=== PATIENT | female | born 1960 | race Caucasian/White ===

== ENCOUNTER 2017-04-04 22:36 | Emergency (ER) | payer OTHER, MEDICARE ==
[2017-04-04 23:08] VITALS: RESP 18
[2017-04-04 23:48] LABS: Appearance,Urine Clear (Clear); Bilirubin,Urine Negative (Negative); Glucose,Urine (UA) Negative (Negative); Ketones,Urine Negative (Negative); Leukocyte Esterase,Urine Negative (Negative); Nitrite,Urine Negative (Negative); PH, Urine 5.5 (5.0-8.0); Protein,Urine Negative (Negative); Specific Gravity,Urine 1.017 (1.001-1.035); UA Billing (MACRO vs. MICRO) CHEM; Urobilinogen,Urine <2.0 mg/dL (<2.0)
--- NOTE | 2017-04-04 23:50 | ED ---
General Adult HPI - General Chief complaint: Abdominal Pain Stated complaint: left kidney pain Time Seen by Provider: 04/04/17 23:14 Source: patient, family, RN notes reviewed, old records reviewed Mode of arrival: ambulatory Limitations: no limitations - History of Present Illness Initial comments: Chief complaint history of present illness a 56-year-old female with complaint of acute onset of pain started in the left lower lumbar area radiating around toward the right groin area. Patient has had history of lumbar disc degenerative changes. But shows become slightly sweaty and nauseated this time. She's never had a kidney stone in the past. - Related Data Home Medications Medication Instructions Recorded Confirmed Cholecalciferol [Vitamin D3] 2,000 unit PO DAILY 09/08/15 04/04/17 Diltiazem HCl [Diltiazem ER] 120 mg PO HS 09/08/15 04/04/17 Etodolac [Lodine] 400 mg PO BID 09/08/15 04/04/17 Levothyroxine Sodium [Synthroid] 100 mcg PO DAILY 09/08/15 04/04/17 Loratadine [Claritin] 10 mg PO DAILY 09/08/15 04/04/17 Losartan [Cozaar] 50 mg PO DAILY 09/08/15 04/04/17 Simvastatin [Zocor] 20 mg PO HS 09/08/15 04/04/17 traMADol HCl [Ultram] 50 mg PO HS 09/08/15 04/04/17 Amoxicillin 500 mg PO TID 04/04/17 04/04/17 DULoxetine HCL [Cymbalta] 30 mg PO DAILY 04/04/17 04/04/17 Fluticasone Nasal [place] [Flonase 1 spray EA NOSTRIL BID PRN 04/04/17 04/04/17 Nasal [place]] Previous Rx's Medication Instructions Recorded Ibuprofen [Motrin] 600 mg PO Q6HR PRN #20 tab 04/05/17 Orphenadrine [Norflex] 100 mg PO Q12H #10 tablet.er 04/05/17 Allergies Allergy/AdvReac Type Severity Reaction Status Date / Time No Known Allergies Allergy Verified 04/04/17 23:24 Review of Systems ROS Statement: Those systems with pertinent positive or pertinent negative responses have been documented in the HPI. review of systems. No visual acuity changes no headache no stiff neck no chest pain or shortness of breath. The discomfort is left lumbar area raise around toward the left groin area. No neuro deficits. All systems were within normal limits. 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 Hyperlipidemia, hypertension, hypothyroidism. The patient 's surgeries include appendectomy tubal ligation and ovarian cyst. Family history significant for basal cell carcinomas and diabetes. Patient denies any ALLERGIES he quit smoking 29 years ago denies alcohol use. ROS Other: All systems not noted in ROS Statement are negative. Past Medical History Past Medical History: Diabetes Mellitus, GERD/Reflux, Hyperlipidemia, Hypertension, Thyroid Disorder Additional Past Medical History / Comment(s): arthritis, anemia, TMJ, Raynauds History of Any Multi-Drug Resistant Organisms: None Reported Past Surgical History: Appendectomy, Tubal Ligation Additional Past Surgical History / Comment(s): ovarian cyst Past Psychological History: Depression Smoking Status: Former smoker Past Alcohol Use History: None Reported Past Drug Use History: None Reported General Exam - General Exam Comments Initial Comments: General: The patient is awake and alert,pain to the left paralumbar region and upper left buttock area. The radiates around toward the front more toward the groin area. Eye: Pupils are equal, extra-ocular movements are intact; there is normal conjunctiva bilaterally. No signs of icterus. Neck: The neck is supple, there is no tenderness Cardiovascular: There is a regular rate and rhythm. No murmur, rub or gallop is appreciated. Respiratory: Lungs are clear to auscultation, respirations are non-labored, breath sounds are equal. No wheezes, stridor, rales, or rhonchi. Gastrointestinal: Soft, non-distended, non-tender abdomen without masses or organomegaly noted. There is no rebound or guarding present. No CVA tenderness. Bowel sounds are unremarkable. Back: mild tenderness with palpation of the left paralumbar region above the left buttock area. She reports the discomfort radiates around toward the front more toward the groin area. She is able to do leg lifts with mild discomfort with lifting the left leg. Musculoskeletal: Normal ROM, no tenderness, There is no pedal edema. There is no calf tenderness or swelling. Sensation intact. Neurological: CN II-XII intact, There are no obvious motor or sensory deficits. Coordination appears grossly intact. Speech is normal.no neuro deficits Skin: Skin is warm and dry and no rashes or lesions are noted. no rashes noted Limitations: no limitations Course Vital Signs 04/04/17 23:06 Temperature 97.9 F Pulse Rate 68 Respiratory 18 Rate Blood Pressure 181/84 O2 Sat by Pulse 98 Oximetry Medical Decision Making - Medical Decision Making Medical decision making patient's white count 7 hemoglobin 11.9 h hematocrit 35.8 amylase lipase normal limits. Potassium is 4.1 with BUN of 18 creatinine 0.7 with a GFR greater than 60. Glucose 94. A clean no signs of infection or blood.X-ray of the lumbosacral spine was done and reviewed it. Awaiting radiologist's final impression at this time no evidence of any acute bony irregularity. Disc spaces appear well maintained. Awaiting radiologist's final impression. X-ray of the abdomen was done and no evidence of any acute intestinal obstruction, no free air. No stones noted over the kidney silhouettes. Awaiting radiologist's final impression. The patient will be placed on ibuprofen 600 mg every 6 hours. And Norflex for muscle relaxation. Ice alternating with heat and follow-up with family physician. - Lab Data Result diagrams: 04/05/17 00:15 04/05/17 00:15 Lab Results 04/04/17 04/05/17 04/05/17 Range/Units 23:40 00:15 00:15 WBC 7.0 (3.8-10.6) k/uL RBC 3.74 L (3.80-5.40) m/uL Hgb 11.9 (11.4-16.0) gm/dL Hct 35.8 (34.0-46.0) % MCV 95.7 (80.0-100.0) fL MCH 31.9 (25.0-35.0) pg MCHC 33.3 (31.0-37.0) g/dL RDW 13.4 (11.5-15.5) % Plt Count 351 (150-450) k/uL Neutrophils % 56 % Lymphocytes % 30 % Monocytes % 7 % Eosinophils % 3 % Basophils % 1 % Neutrophils # 3.9 (1.3-7.7) k/uL Lymphocytes # 2.1 (1.0-4.8) k/uL Monocytes # 0.5 (0-1.0) k/uL Eosinophils # 0.2 (0-0.7) k/uL Basophils # 0.1 (0-0.2) k/uL Sodium 142 (137-145) mmol/L Potassium 4.1 (3.5-5.1) mmol/L Chloride 107 (98-107) mmol/L Carbon Dioxide 23 (22-30) mmol/L Anion Gap 12 mmol/L BUN 18 H (7-17) mg/dL Creatinine 0.70 (0.52-1.04) mg/dL Est GFR (MDRD) Af Amer >60 (>60 ml/min/1.73 sqM) Est GFR (MDRD) Non-Af >60 (>60 ml/min/1.73 sqM) Glucose 94 (74-99) mg/dL Calcium 9.6 (8.4-10.2) mg/dL Total Bilirubin 0.3 (0.2-1.3) mg/dL AST 23 (14-36) U/L ALT 35 (9-52) U/L Alkaline Phosphatase 66 (38-126) U/L Total Protein 6.5 (6.3-8.2) g/dL Albumin 3.9 (3.5-5.0) g/dL Amylase 80 (30-110) U/L Lipase 231 (23-300) U/L Urine Color Yellow Urine Appearance Clear (Clear) Urine pH 5.5 (5.0-8.0) Ur Specific [place] 1.017 (1.001-1.035) Urine Protein Negative (Negative) Urine Glucose (UA) Negative (Negative) Urine Ketones Negative (Negative) Urine Blood Negative (Negative) Urine Nitrite Negative (Negative) Urine Bilirubin Negative (Negative) Urine Urobilinogen <2.0 (<2.0) mg/dL Ur Leukocyte Esterase Negative (Negative) Disposition Clinical Impression: Lumbar spine strain Disposition: HOME SELF-CARE Condition: Fair Instructions: Acute Low Back Pain (ED) Additional Instructions: Do gentle stretching. Alternate ice and heat. Take medications as directed. Prescriptions: Ibuprofen [Motrin] 600 mg PO Q6HR PRN #20 tab PRN Reason: Pain Orphenadrine [Norflex] 100 mg PO Q12H #10 tablet.er Referrals: Lb Joya MD [Primary Care Provider] - 1-2 days Time of Disposition: 00:50
[2017-04-05 00:20] LABS: Basophils # (A) 0.1 k/uL (0-0.2); Basophils % (A) 1 %; CH 32.1; CHCM 33.7; Eosinophils # (A) 0.2 k/uL (0-0.7); Eosinophils % (A) 3 %; HCT 35.8 % (34.0-46.0); HGB 11.9 gm/dL (11.4-16.0); Luc # (Auto) 0.24; Luc % (Auto) 4; Lymphocytes # (A) 2.1 k/uL (1.0-4.8); Lymphocytes % (A) 30 %; MCH 31.9 pg (25.0-35.0); MCHC 33.3 g/dL (31.0-37.0); MCV 95.7 fL (80.0-100.0); Monocytes # (A) 0.5 k/uL (0-1.0); Monocytes % (A) 7 %; Neutrophils # (A) 3.9 k/uL (1.3-7.7); Neutrophils % (A) 56 %; RBC 3.74 m/uL (3.80-5.40); RDW 13.4 % (11.5-15.5); WBC (Perox) 7.13
[2017-04-05 00:29] LABS: ALT 35 U/L (9-52); AST 23 U/L (14-36); Alkaline Phosphatase 66 U/L (38-126); Amylase 80 U/L (30-110); Anion Gap 12 mmol/L; Blood Urea Nitrogen 18 mg/dL (7-17); Calcium 9.6 mg/dL (8.4-10.2); Carbon Dioxide 23 mmol/L (22-30); Chloride 107 mmol/L (98-107); Glucose 94 mg/dL (74-99); Non-African American GFR(MDRD) >60 (>60 ml/min/1.73 sqM); Potassium 4.1 mmol/L (3.5-5.1); Sodium 142 mmol/L (137-145); Total Bilirubin 0.3 mg/dL (0.2-1.3); Total Protein 6.5 g/dL (6.3-8.2)
[2017-04-05] MEDS ORDERED: CYCLOBENZAPRINE 10 MG TAB PO STA (00:49)
[2017-04-05] MEDS ORDERED: IBUPROFEN 600 MG STARTER PACK 4 TAB BTL PO STA (00:49)
[2017-04-05 01:09] VITALS: BP 164/91; PULSE 74; TEMP 97.8
--- NOTE | 2017-04-05 01:10 | XR ---
ADDENDUM - Added by Reji Rivera M.D. on 04/05/2017 1:24 AM (-07:00) A prior lumbar spine study from 03/06/15 was made available for review; this showed that the grade 1 degenerative anterolisthesis of L4 on L5 along with lower lumbar spine mild to moderate facet arthropathy are unchanged. ADDENDUM - Added by Reji Rivera M.D. on 04/05/2017 1:21 AM (-07:00) Further review shows grade 1 degenerative anterolisthesis of L4-L5 on the spot L5-S1 view. Could further evaluate with flexion and extension views to evaluate for any mechanical instability. EXAM: XR Lumbar Spine, 2 or 3 Views CLINICAL HISTORY: Reason: Pain TECHNIQUE: Frontal and lateral views of the lumbar spine. COMPARISON: No relevant prior studies available. FINDINGS: Vertebrae: Unremarkable. No acute fracture. Normal alignment. Disc spaces: No acute findings. No significant narrowing. Soft tissues: Unremarkable. IMPRESSION: Normal lumbar spine x-rays.
--- NOTE | 2017-04-05 01:19 | XR ---
EXAM: XR Abdomen Complete, 2 or More Views CLINICAL HISTORY: Reason: abdominal pain TECHNIQUE: Frontal supine and upright views of the abdomen/pelvis. COMPARISON: No relevant prior studies available. FINDINGS: Intraperitoneal space: No free air. Gastrointestinal tract: Unremarkable. No dilation. Bones/joints: Unremarkable. IMPRESSION: Normal abdominal x-rays.
== END 2017-04-05 01:09 | disposition home or self-care (01) ==
LOC: EC 22:36
DX: S39.012A Strain of muscle, fascia and tendon of lower back, initial encounter (principal); I10 Essential (primary) hypertension; E78.5 Hyperlipidemia, unspecified; E07.9 Disorder of thyroid, unspecified; F32.9 Major depressive disorder, single episode, unspecified; R11.0 Nausea; M19.90 Unspecified osteoarthritis, unspecified site; Z87.891 Personal history of nicotine dependence; Z79.899 Other long term (current) drug therapy
CPT/HCPCS: 36415; 72110; 74020; 80053; 81003; 82150; 83690; 85025; 87077; 87086; 87186; 99284

== ENCOUNTER 2018-09-04 20:26 | Emergency (ER) | payer MEDICARE, OTHER ==
[2018-09-04 20:43] VITALS: RESP 18
--- NOTE | 2018-09-04 21:42 | ED ---
Fall HPI - General Source: patient, RN notes reviewed Mode of arrival: wheelchair Limitations: no limitations <Cecy North - Last Filed: 09/04/18 22:11> <Caro Baer - Last Filed: 09/05/18 03:53> - General Chief Complaint: Fall Stated Complaint: fall Time Seen by Provider: 09/04/18 20:57 - History of Present Illness Initial Comments: This is a 58-year-old female who presents to the emergency department with chief complaint of right jolley injury. Patient states that approximately 30 minutes prior to arrival she was carrying a box of books. She states that she entered her garage and did not see a pallet lying on the ground. She tripped over it and fell forward landing on the box of books. She states that her right jolley scraped against the wood pallet. She is bearing weight and ambulating but complains of pain to the jolley. Denies any other injuries or trauma. Denies head, neck or back pain. She denies loss of consciousness, nausea or vomiting, dizziness or headache. (Cecy North) - Related Data Home Medications Medication Instructions Recorded Confirmed Cholecalciferol [Vitamin D3] 2,000 unit PO DAILY 09/08/15 04/04/17 Diltiazem HCl [Diltiazem ER] 120 mg PO HS 09/08/15 04/04/17 Etodolac [Lodine] 400 mg PO BID 09/08/15 04/04/17 Levothyroxine Sodium [Synthroid] 100 mcg PO DAILY 09/08/15 04/04/17 Loratadine [Claritin] 10 mg PO DAILY 09/08/15 04/04/17 Losartan [Cozaar] 50 mg PO DAILY 09/08/15 04/04/17 Simvastatin [Zocor] 20 mg PO HS 09/08/15 04/04/17 traMADol HCl [Ultram] 50 mg PO HS 09/08/15 04/04/17 Amoxicillin 500 mg PO TID 04/04/17 04/04/17 DULoxetine HCL [Cymbalta] 30 mg PO DAILY 04/04/17 04/04/17 Fluticasone Nasal [place] [Flonase 1 spray EA NOSTRIL BID PRN 04/04/17 04/04/17 Nasal [place]] Previous Rx's Medication Instructions Recorded Ibuprofen [Motrin] 600 mg PO Q6HR PRN #20 tab 04/05/17 Orphenadrine [Norflex] 100 mg PO Q12H #10 tablet.er 04/05/17 Allergies Allergy/AdvReac Type Severity Reaction Status Date / Time No Known Allergies Allergy Verified 09/04/18 20:40 Review of Systems ROS Other: All systems not noted in ROS Statement are negative. <Cecy North - Last Filed: 09/04/18 22:11> ROS Other: All systems not noted in ROS Statement are negative. <Caro Baer - Last Filed: 09/05/18 03:53> ROS Statement: Those systems with pertinent positive or pertinent negative responses have been documented in the HPI. Past Medical History Past Medical History: Diabetes Mellitus, GERD/Reflux, Hyperlipidemia, Hypertension, Thyroid Disorder Additional Past Medical History / Comment(s): arthritis, anemia, TMJ, Raynauds, deaf in right ear, has "balance issues". History of Any Multi-Drug Resistant Organisms: None Reported Past Surgical History: Appendectomy, Tubal Ligation Additional Past Surgical History / Comment(s): ovarian cyst Past Psychological History: Depression Smoking Status: Former smoker Past Alcohol Use History: None Reported Past Drug Use History: None Reported <Cecy North - Last Filed: 09/04/18 22:11> General Exam Limitations: no limitations <Cecy North - Last Filed: 09/04/18 22:11> <Caro Baer P - Last Filed: 09/05/18 03:53> - General Exam Comments Initial Comments: General: Awake and alert, well-developed; in no apparent distress. Sitting comfortably on ED stretcher. HEENT: Head atraumatic, normocephalic. Pupils are equal, round and reactive to light. Extraocular movements intact. Oropharynx moist without erythema or exudate. Neck: Supple. Normal ROM. Cardiovascular: Regular rate and rhythm. No murmurs, rubs or gallops. Chest symmetrical. Respiratory: Lungs clear to auscultation bilaterally. No wheezes, rales or rhonchi. Normal respiratory effort with no use of accessory muscles. Musculoskeletal: Normal range of motion of bilateral upper and lower extremities. There is an approximately 3 cm x 4 cm superficial skin abrasion and ecchymosis distal to the right knee. Sensation is intact. Pedal pulses are 2+ equal and palpable bilaterally. Skin: [place], warm and dry without rashes. Neurological: Alert and oriented x3. CN II-XII grossly intact. Speech is fluent and answers are appropriate. No focal neuro deficits. Psychiatric: Normal mood and affect. No overt signs of depression or anxiety noted. (Cecy North) Vital Signs 09/04/18 09/04/18 20:40 22:11 Temperature 98.1 F 97.8 F Pulse Rate 78 80 Respiratory 18 18 Rate Blood Pressure 136/90 151/89 O2 Sat by Pulse 98 96 Oximetry Medical Decision Making - Radiology Data Radiology results: report reviewed <Cecy North - Last Filed: 09/04/18 22:11> <Caro Baer - Last Filed: 09/05/18 03:53> - Medical Decision Making This is a 58-year-old female who presents to the emergency department with chief complaint of right jolley injury. Patient reports tripping over a pallet and scraping her right jolley on it. Patient is bearing weight and ambulating but does complain of pain. There is a superficial skin abrasion and contusion distal to the right knee. No gross deformities. No bleeding. Patient is neurovascularly intact. X-ray of the right tibia and fibula was obtained which revealed no acute abnormalities. She is in no acute distress and will be discharged home at this time. Instructed patient to rest, ice and take Tylenol or Motrin as needed for pain. She is in agreement with plan and voices understanding. All questions are answered. (Cecy North) I was available for consultation in the emergency department. The history and physical exam were done by the Midlevel Provider. Medical decision making was done by the Midlevel Provider. The Midlevel Provider did not contact me for this patient's care. I was not directly involved in this patient's care. (Caro Baer) - Radiology Data X-ray right tibia and fibula impression: No acute process. (Cecy North) Disposition Is patient prescribed a controlled substance at d/c from ED?: No Time of Disposition: 21:45 <Cecy North - Last Filed: 09/04/18 22:11> <Caro Baer - Last Filed: 09/05/18 03:53> Clinical Impression: Contusion of leg, Abrasion Disposition: HOME SELF-CARE Condition: Good Instructions: Contusion in Adults (ED), Abrasion (ED) Additional Instructions: Please follow up with primary care provider within 1-2 days. Return to emergency department if symptoms should worsen or any concerns arise. Referrals: Lb Joya MD [Primary Care Provider] - 1-2 days
--- NOTE | 2018-09-04 21:57 | XR ---
PROCEDURE: XR tibia fibula RT 2 views DATE AND TIME: 09/04/2018 9:21 PM CLINICAL INDICATION: H Pain TECHNIQUE: Department protocol. COMPARISON: None FINDINGS: There is no fracture or malalignment. The soft tissues are unremarkable. IMPRESSION: NO ACUTE PROCESS.
[2018-09-04 22:13] VITALS: BP 151/89; PULSE 80; TEMP 97.8
== END 2018-09-04 22:13 | disposition home or self-care (01) ==
LOC: EC 20:26
DX: S80.11XA Contusion of right lower leg, initial encounter (principal); E78.5 Hyperlipidemia, unspecified; I10 Essential (primary) hypertension; E07.9 Disorder of thyroid, unspecified; M19.90 Unspecified osteoarthritis, unspecified site; F32.9 Major depressive disorder, single episode, unspecified; Z87.891 Personal history of nicotine dependence; Z90.49 Acquired absence of other specified parts of digestive tract; Z98.51 Tubal ligation status; Z79.1 Long term (current) use of non-steroidal anti-inflammatories (NSAID); Z79.891 Long term (current) use of opiate analgesic; Z79.899 Other long term (current) drug therapy; W01.198A Fall on same level from slipping, tripping and stumbling with subsequent striking against other object, initial encounter; Y92.89 Other specified places as the place of occurrence of the external cause
CPT/HCPCS: 99283

== ENCOUNTER → 2019-08-15 | Outpatient (CLI) | payer MEDICARE | END | disposition home or self-care (01) | LOC: LABWHC1 08:29 | PROVIDERS: ATTEND Internal Medicine Endocrinology, Diabetes & Metabolism | DX: E03.8 Other specified hypothyroidism (principal); E06.3 Autoimmune thyroiditis | CPT/HCPCS: 36415; 84443 ==

== ENCOUNTER → 2020-07-21 | Outpatient (CLI) | payer MEDICARE ==
--- NOTE | 2020-07-21 19:45 | CT ---
EXAMINATION TYPE: CT abdomen pelvis wo con DATE OF EXAM: 07/21/2020 COMPARISON: 06/09/2016 HISTORY: LUQ pain radiating into back CT DLP: 938 mGycm Automated exposure control for dose reduction was used. TECHNIQUE: Helical acquisition of images was performed from the lung bases through the pelvis. FINDINGS: LUNG BASES: No consolidation or pleural effusion. Vague 5 mm nodule right upper lobe axial image set 2 small to characterize. LIVER/GB: Liver is reduced attenuation correlate for hepatic steatosis.. Similar finding seen in the region of the yocasta hepatis. PANCREAS: No significant abnormality is seen. SPLEEN: No significant abnormality is seen. ADRENALS: No significant abnormality is seen. KIDNEYS: Cortical loss is seen particularly on the right suggestive of chronic medical renal disease. Lobulation of the left renal cortex. No hydronephrosis or nephrolithiasis. Duplicated left renal col lecting system suspected. FREE AIR: No free air is visualized RETROPERITONEAL ADENOPATHY: None visualized URINARY BLADDER: No significant abnormality is seen. PELVIC ADENOPATHY: None visualized. OSSEOUS STRUCTURES: Is a curvature of the spine with hypertrophic and degenerative changes noted. BOWEL: No significant abnormality is seen. OTHER: Lobulation of the anterior margin of the uterus on the left stable from prior exam likely rela chandni to exophytic fibroid. Aorta of normal caliber. No free fluid or free air. IMPRESSION: 1. Duplicated left collecting system. There is increased lobulation probably left kidney which limits assessment for neoplasm with noncontrast technique. Recommend follow-up ultrasound. No hydronephrosi s or nephrolithiasis. 2. Suspected stable 1 cm exophytic anterior uterine fibroid 3. Hepatic steatosis with areas of focal fatty sparing
== END | disposition home or self-care (01) ==
LOC: RADCTMAIN 16:52
PROVIDERS: ATTEND Internal Medicine
DX: K76.0 Fatty (change of) liver, not elsewhere classified (principal); D25.9 Leiomyoma of uterus, unspecified
CPT/HCPCS: 74176

== ENCOUNTER → 2020-08-13 | Outpatient (CLI) | payer MEDICARE ==
--- NOTE | 2020-08-13 13:50 | US ---
EXAMINATION TYPE: US kidneys/renal and bladder DATE OF EXAM: 08/13/2020 COMPARISON: CT CLINICAL HISTORY: N28.9 Disorder of kidney and ureter. Abnormal CT EXAM MEASUREMENTS: Right Kidney: 10.6 x 3.9 x 4.6 cm Left Kidney: 12.0 x 5.3 x 4.0 cm Right Kidney: Cortical thinning Left Kidney: Cortical thinning, lobulated contour Bladder: wnl Bilateral Jets seen: Yes There is no evidence for hydronephrosis at this point in time. No nephrolithiasis is seen. No meri s are identified. The urinary bladder is anechoic. Bilateral ureteral jets are seen. IMPRESSION: Cortical thinning and lobulations.
== END | disposition home or self-care (01) ==
LOC: RADUSWWP 13:24
PROVIDERS: ATTEND Internal Medicine
DX: Q63.1 Lobulated, fused and horseshoe kidney (principal); R93.421 Abnormal radiologic findings on diagnostic imaging of right kidney; N18.9 Chronic kidney disease, unspecified
CPT/HCPCS: 76770

== ENCOUNTER → 2020-09-15 | Outpatient (CLI) | payer MEDICARE ==
--- NOTE | 2020-09-15 13:46 | CT ---
EXAMINATION TYPE: CT urogram wo/w con DATE OF EXAM: 09/15/2020 HISTORY: Left flank pain, abnormal findings on diagnostic imaging CT DLP: 2618mGycm Automated Exposure Control for Dose Reduction was Utilized. CONTRAST: CT urogram scan of the abdomen and pelvis is performed without and with IV Contrast, patient injected with 100 ml mL of Isovue 370. Three-dimensional images were obtained and utilized on a separate work station. COMPARISON: CT abdomen pelvis 07/21/2020. Ultrasound kidneys 08/13/2020. FINDINGS: LUNG BASES: Likely a redemonstrated 2 mm pulmonary nodule of the right middle lobe (13:1). No pericar dial or pleural effusion. LIVER: Fatty heterogenous liver. There is a geographic somewhat linear-appearing area of hyperdensity in the right inferior liver (3:27), redemonstrated from 07/21/2020, which persists on all phases of co ntrast. BILIARY SYSTEM: Normal. PANCREAS: Normal. SPLEEN: Normal. ADRENALS: Normal. KIDNEYS: No nephrolithiasis. No renal mass. Too small to characterize hypodense lesions of the left k idney upper pole posteriorly. There is homogenous and synchronous renal enhancement and excretion yu aterally. UROTHELIAL SYSTEM: No hydronephrosis or hydroureter bilaterally. There is a duplicated left renal col lecting system, with 2 proximal left ureters which fuse into a single ureter at the mid ureteral poin t. No urothelial thickening, mass, stricture, or dilatation. The urinary bladder is moderately disten ded with excreted contrast, demonstrating no evidence of urothelial mass. BOWEL: No obstruction or thickening. PERITONEUM: No pneumoperitoneum. No free fluid. LYMPH NODES: No lymphadenopathy. PELVIS: Fibroid uterus. VASCULATURE: No abdominal aortic aneurysm. MUSCULOSKELETAL: Degenerative changes of the spine. IMPRESSION: 1. 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 No hydroureteronephrosis. 2. No evidence of solid renal mass, nephrolithiasis, or urothelial abnormality. 3. Too small to characterize hypodense lesions of the left kidney. 4. Heterogenous fatty liver. Geographic hyperdensity of the right liver on all phases likely represen ts focal fatty sparing. Findings could be confirmed with MRI examination of the abdomen.
== END | disposition home or self-care (01) ==
LOC: RADCTMAIN 08:33
PROVIDERS: ATTEND Urology
DX: K76.0 Fatty (change of) liver, not elsewhere classified (principal); N28.89 Other specified disorders of kidney and ureter; R10.9 Unspecified abdominal pain
CPT/HCPCS: 74178; 74400; Q9967

== ENCOUNTER → 2021-02-22 | Outpatient (CLI) | payer MEDICARE | END | disposition home or self-care (01) | LOC: LABWHC1 11:32 | PROVIDERS: ATTEND Internal Medicine Endocrinology, Diabetes & Metabolism | DX: E03.8 Other specified hypothyroidism (principal); E06.3 Autoimmune thyroiditis | CPT/HCPCS: 36415; 84443 ==

== ENCOUNTER → 2025-05-05 | Outpatient (CLI) | payer MEDICARE ==
--- NOTE | 2025-05-05 09:49 | MM ---
Reason for Exam: Screening (asymptomatic). Last mammogram was performed 1 year(s) and 9 month(s) ago. Patient History: Menarche at age 15. First Full-Term at age 21. Right ovary removed at age 29. Postmenopausal. Patient has history of breast feeding. Maternal aunt had breast cancer. Sister had breast cancer, age 66. Sister tested for BRCA1 outcome was negative. Sister tested for BRCA2 outcome was negative. Risk Values: Kathy 5 year model risk: 2.7%. NCI Lifetime model risk: 11.4%. Prior Study Comparison: 06/20/2008 Bilateral Screening Mammogram, [facility]. 07/01/2008 Right Diagnostic Mammogram, [facility]. 08/08/2023 Bilateral MG 3D screening mammo w/cad, [facility]. Tissue Density: The breasts are heterogeneously dense, which may obscure small masses. Findings: Analyzed By CAD. Right breast: There is no suspicious group of microcalcifications or new suspicious mass. Left breast: There is no suspicious group of microcalcifications or new suspicious mass. Overall Assessment: Negative, BI-RAD 1 Management: Screening Mammogram of both breasts in [address] [facility] will attempt to contact patient to return for supplemental views and ultrasound if indicated. Patient should continue monthly self-breast exams. A clinical breast exam by your physician is recommended on an annual basis. This exam should not preclude additional follow-up of suspicious palpable abnormalities. Note on Kathy scores and lifetime risk: 1. A Kathy score greater than 3% is considered moderate risk. If this is the case, consider specialist referral to assess eligibility for a risk reducing agent. 2. If overall lifetime risk for the development of breast cancer is 20% or higher, the patient may qualify for future screening with alternating mammogram and breast MRI. [facility], , 05/05/2025 9:44 AM. Electronically signed and approved by: Flo Arthur DO
== END | disposition home or self-care (01) ==
LOC: RADMAMWWP 08:40
PROVIDERS: ATTEND Family Medicine
DX: Z12.31 Encounter for screening mammogram for malignant neoplasm of breast (principal); R92.333 Mammographic heterogeneous density, bilateral breasts; Z80.3 Family history of malignant neoplasm of breast; Z78.0 Asymptomatic menopausal state
CPT/HCPCS: 77063; 77067